=== PATIENT | male | born 1950 | race African-American/Black ===

== ENCOUNTER 2020-09-13 09:50 | Emergency (ER) | payer MEDICARE, MEDICAID ==
[~2020-09-13] VITALS: Ht 180.3 cm; Wt 73.0 kg
[2020-09-13 11:13] LABS: BASOPHILS % 0.5 % (0.0-2.0); EOSINOPHILS % 1.3 % (0.0-5.0); HEMATOCRIT. 38.4 % (42.0-52.0); HEMOGLOBIN. 12.5 g/dL (14.0-18.0); MEAN CORPUSCULAR HEMOGLOBIN 28.4 pg (28.0-32.0); MEAN CORPUSCULAR VOLUME 87.1 fL (80.0-94.0); MEAN PLATELET VOLUME 8.4 fl (7.4-10.4); MONOCYTES % 9.3 % (2.0-8.0); NEUTROPHILS % 68.9 % (40.0-76.0); PLATELET 229 x1000/uL (130-400); RED BLOOD CELL COUNT 4.41 mill/uL (4.7-6.1); RED CELL DISTRIBUTION WIDTH 16.8 % (11.6-14.6)
[2020-09-13 11:17] LABS: CHLORIDE 101 mEq/L (98-107)
[2020-09-13 11:22] LABS: ETHANOL BLOOD < 10 mg/dL
[2020-09-13] MEDS ORDERED: KETOROLAC 30MG/ML VIAL IV ONE (12:00)
[2020-09-13 12:48] LABS: CLARITY URINE CLEAR (CLEAR); COLOR URINE YELLOW (YELLOW); KETONES URINE NEGATIVE (NEGATIVE); LEUKOCYTE ESTERASE URINE NEGATIVE (NEGATIVE); NITRITE URINE NEGATIVE (NEGATIVE); OCCULT BLOOD URINE NEGATIVE (NEGATIVE); PH URINE 6.5 (4.5-8.0); PROTEIN URINE 2+ (NEGATIVE); SPECIFIC GRAVITY URINE 1.018 (1.005-1.030)
[2020-09-13 13:06] LABS: *AMPHETAMINES SCREEN URINE NEGATIVE (NEGATIVE); *BARBITURATES SCREEN URINE NEGATIVE (NEGATIVE); *BENZODIAZEPINES SCREEN URINE NEGATIVE (NEGATIVE); *COCAINE SCREEN URINE NEGATIVE (NEGATIVE); METHADONE URINE SCREEN NEGATIVE (NEGATIVE); OPIATES URINE SCREEN NEGATIVE (NEGATIVE)
[2020-09-13 13:07] LABS: CANNABINOID URINE SCREEN NEGATIVE (NEGATIVE); PHENCYCLIDINE URINE SCREEN NEGATIVE (NEGATIVE)
[2020-09-13 18:30] VITALS: BP 122/76
== END 2020-09-13 21:42 | disposition home or self-care (01) ==
LOC: ER 10:08
DX: F03.90 Unspecified dementia, unspecified severity, without behavioral disturbance, psychotic disturbance, mood disturbance, and anxiety (principal); J44.9 Chronic obstructive pulmonary disease, unspecified
CPT/HCPCS: 36415; 71045; 80053; 80305; 80320; 81003; 82140; 85025; 93005; 96374; 99285; J1885; G0480

== ENCOUNTER 2021-03-21 05:07 | Inpatient (IN) | payer BC, MEDICAID ==
[~2021-03-21] VITALS: Ht 154.3 cm; Wt 59.9 kg
[~2021-03-21 05:07] MED LIST: ALBU18HF2 IH; FLUT1DIS3 INH; MED4 MT; MEMA5TAB7 PO; MULT-379 MT; RISP1 PO
[2021-03-21 06:23] LABS: HEMATOCRIT. 36.9 % (42.0-52.0); HEMOGLOBIN. 11.7 g/dL (14.0-18.0); MEAN CORPUSCULAR HEMOGLOBIN 28.6 pg (28.0-32.0); MEAN CORPUSCULAR VOLUME 90.2 fL (80.0-94.0); MEAN PLATELET VOLUME 8.4 fl (7.4-10.4); PLATELET 279 x1000/uL (130-400); RED BLOOD CELL COUNT 4.09 mill/uL (4.7-6.1); RED CELL DISTRIBUTION WIDTH 15.8 % (11.6-14.6)
[2021-03-21 06:31] LABS: CHLORIDE 104 mEq/L (98-107)
[2021-03-21] MEDS ORDERED: METHYLPREDNISOLONE SOD SUCC 125 MG/2 ML VIAL IV STA (06:34)
[2021-03-21] MEDS ORDERED: IPRATROPIUM BROMIDE (0.02%) 0.5MG/2.5ML NEB HHN STA (06:34)
[2021-03-21] MEDS ORDERED: ALBUTEROL (0.083%) 2.5MG/3ML NEB HHN STA (06:34)
[2021-03-21 07:02] LABS: PLATELET ESTIMATE NORMAL
[2021-03-21] MEDS ORDERED: HALOPERIDOL LACTATE 5MG/ML VIAL IM ONE (08:15)
[2021-03-21] MEDS ORDERED: ONDANSETRON HCL 4MG/2ML INJ IV PRN (12:15)
[2021-03-21] MEDS ORDERED: ACETAMINOPHEN 325MG TABLET PO PRN (12:15)
[2021-03-21] MEDS: METHYLPREDNISOLONE SOD SUCC 40 MG/ML VIAL IV SCH ×2 (12:30→21:18)
[2021-03-21 16:00] VITALS: BP 136/76
[2021-03-21] MEDS: IPRATROPIUM/ALBUTEROL 0.5-3(2.5)MG/3ML NEB HHN SCH ×2 (16:00→21:55)
[2021-03-21 16:03] VITALS: BP 136/76
[2021-03-21] MEDS ORDERED: HALOPERIDOL LACTATE 5MG/ML VIAL IM NR (18:15)
[2021-03-21] MEDS ORDERED: HALOPERIDOL LACTATE 5MG/ML VIAL IM PRN (18:15)
[2021-03-21 20:00] VITALS: BP 119/71
[2021-03-21] MEDS: FAMOTIDINE 20MG TABLET PO SCH (21:18)
[2021-03-22 04:00] VITALS: BP 120/73
[2021-03-22] MEDS: IPRATROPIUM/ALBUTEROL 0.5-3(2.5)MG/3ML NEB HHN SCH ×4 (04:00→20:00)
[2021-03-22] MEDS: METHYLPREDNISOLONE SOD SUCC 40 MG/ML VIAL IV SCH ×3 (05:41→20:40)
[2021-03-22 08:20] VITALS: BP 123/76
[2021-03-22] MEDS: FAMOTIDINE 20MG TABLET PO SCH ×2 (08:50→20:40)
[2021-03-22 12:00] VITALS: BP 99/80
[2021-03-22] MEDS: RISPERIDONE 1MG TABLET PO SCH (12:07)
[2021-03-22 16:00] VITALS: BP 130/78
[2021-03-22 20:00] VITALS: BP 127/74
[2021-03-23] MEDS: IPRATROPIUM/ALBUTEROL 0.5-3(2.5)MG/3ML NEB HHN SCH ×4 (04:00→16:15)
[2021-03-23] MEDS: METHYLPREDNISOLONE SOD SUCC 40 MG/ML VIAL IV SCH ×2 (04:30→14:07)
[2021-03-23 08:00] VITALS: BP 147/95
[2021-03-23] MEDS: FAMOTIDINE 20MG TABLET PO SCH (08:12)
[2021-03-23] MEDS: RISPERIDONE 1MG TABLET PO SCH (08:12)
[2021-03-23] MEDS ORDERED: P20 MT (11:12)
[2021-03-23 12:00] VITALS: BP 114/63
[2021-03-23 13:55] VITALS: BP 114/63
== END 2021-03-23 16:35 | disposition home or self-care (01) | DRG 189 ==
LOC: ER 05:07 → 5WST 08:25 → EDBEDREQ 08:27 → EDBEDREQTM 08:27 → ENRESERV 11:38 → 5WST 18:00
PROVIDERS: ADMIT Internal Medicine; ATTEND Internal Medicine
DX: J96.01 Acute respiratory failure with hypoxia (principal); J44.1 Chronic obstructive pulmonary disease with (acute) exacerbation; I10 Essential (primary) hypertension; Z99.81 Dependence on supplemental oxygen; D64.9 Anemia, unspecified; F03.90 Unspecified dementia, unspecified severity, without behavioral disturbance, psychotic disturbance, mood disturbance, and anxiety; F20.9 Schizophrenia, unspecified; Z79.51 Long term (current) use of inhaled steroids; Z79.899 Other long term (current) drug therapy; Z78.1 Physical restraint status
CPT/HCPCS: 36415; 71045; 80053; 83880; 84484; 85025; 93005; 94640; 99285; C1893; J1630; J2920

== ENCOUNTER 2021-05-17 13:00 | Inpatient (IN) | payer BC, MEDICAID ==
[~2021-05-17] VITALS: Ht 170.2 cm; Wt 79.4 kg
[~2021-05-17 13:00] MED LIST changes: +FAMO20TA8 PO; +IPRA3AMP9 HHN; -MED4 MT; +P20 MT
[2021-05-17] MEDS ORDERED: IPRATROPIUM BROMIDE (0.02%) 0.5MG/2.5ML NEB HHN STA (13:06)
[2021-05-17] MEDS ORDERED: ALBUTEROL (0.083%) 2.5MG/3ML NEB HHN STA (13:06)
[2021-05-17] MEDS ORDERED: PREDNISONE 20MG TABLET PO STA (13:06)
[2021-05-17] MEDS ORDERED: LEVOFLOXACIN 750MG PREMIX 150 ML IV ONE (13:30)
[2021-05-17 14:03] LABS: BASOPHILS % 0.4 % (0.0-2.0); EOSINOPHILS % 0.3 % (0.0-5.0); HEMATOCRIT. 40.1 % (42.0-52.0); HEMOGLOBIN. 13.2 g/dL (14.0-18.0); LYMPHOCYTES % 20.1 % (20.0-50.0); MEAN CORPUSCULAR HEMOGLOBIN 29.5 pg (28.0-32.0); MEAN PLATELET VOLUME 8.5 fl (7.4-10.4); MONOCYTES % 9.4 % (2.0-8.0); NEUTROPHILS % 69.8 % (40.0-76.0); PLATELET 247 x1000/uL (130-400); RED BLOOD CELL COUNT 4.46 mill/uL (4.7-6.1); RED CELL DISTRIBUTION WIDTH 16.3 % (11.6-14.6)
[2021-05-17 14:07] LABS: CHLORIDE 107 mEq/L (98-107)
[2021-05-17 14:40] LABS: BG BASE EXCESS 9.1 mmol/L (-2.0-2.0); BG CARBOXYHEMOGLOBIN 0.8 % (0.5-1.5); BG DEOXYHEMOGLOBIN 5.8 % (0.0-5.0); BG FRACTION INSPIRED OXYGEN 28; BG HCO3 ACT 37.5 mmol/L (22.0-26.0); BG METHEMOGLOBIN 0.2 % (0.0-1.5); BG OXYGEN SATURATION 94.1 % (92.0-98.5); BG OXYHEMOGLOBIN 93.2 % (94.0-97.0); BG PCO2 70.1 mmHg (35.0-45.0); BG PH 7.346 (7.350-7.450); BG PO2 72.3 mmHg (75.0-100.0); BG SAMPLE SITE RIGHT RADIAL; BG TOTAL HEMOGLOBIN 13.7 g/dL (12.0-18.0); BG VENT MODE NASAL CANNULA
[2021-05-17] MEDS ORDERED: LORAZEPAM 2MG/ML CPJ IM PRN (14:45)
[2021-05-17] MEDS ORDERED: ALBUTEROL (0.083%) 2.5MG/3ML NEB HHN NR (15:15)
[2021-05-17] MEDS ORDERED: OLANZAPINE 10 MG/VIAL IM ONE (16:45)
[2021-05-17 17:45] LABS: *AMPHETAMINES SCREEN URINE NEGATIVE (NEGATIVE); *BARBITURATES SCREEN URINE NEGATIVE (NEGATIVE); *BENZODIAZEPINES SCREEN URINE NEGATIVE (NEGATIVE); *COCAINE SCREEN URINE NEGATIVE (NEGATIVE); CANNABINOID URINE SCREEN NEGATIVE (NEGATIVE); PHENCYCLIDINE URINE SCREEN NEGATIVE (NEGATIVE)
[2021-05-17 17:46] LABS: METHADONE URINE SCREEN NEGATIVE (NEGATIVE); OPIATES URINE SCREEN NEGATIVE (NEGATIVE)
[2021-05-17] MEDS ORDERED: HYDROCODONE/ACETAMINOPHEN 5/325MG TABLET PO PRN (18:30)
[2021-05-17] MEDS ORDERED: CLONIDINE 0.1MG TABLET PO PRN (18:30)
[2021-05-17] MEDS ORDERED: DOCUSATE SODIUM 100MG CAPSULE PO PRN (18:30)
[2021-05-17] MEDS ORDERED: ONDANSETRON HCL 4MG/2ML INJ IV PRN (18:30)
[2021-05-17] MEDS ORDERED: ACETAMINOPHEN 325MG TABLET PO PRN ×2 (18:30)
[2021-05-17] MEDS: METHYLPREDNISOLONE SOD SUCC 40 MG/ML VIAL IV SCH (18:35)
[2021-05-18] VITALS (7 sets, daily range): BP systolic 120–144; BP diastolic 59–101
[2021-05-18] MEDS: METHYLPREDNISOLONE SOD SUCC 40 MG/ML VIAL IV SCH ×3 (03:49→18:40)
[2021-05-18] MEDS: LORAZEPAM 0.5MG TABLET PO PRN ×4 (06:19→23:24)
[2021-05-18] MEDS ORDERED: NALOXONE HCL 0.4MG/ML VIAL IV PRN (15:15)
[2021-05-18] MEDS ORDERED: IPRA3AMP9 HHN (17:17)
[2021-05-18] MEDS ORDERED: P20 MT (17:17)
[2021-05-18] MEDS ORDERED: FAMO20TA8 PO (17:17)
[2021-05-18] MEDS ORDERED: ALBU18HF2 IH (17:17)
[2021-05-18] MEDS ORDERED: FLUT1DIS3 INH (17:17)
[2021-05-18 20:42] LABS: HEMATOCRIT. 37.7 % (42.0-52.0); HEMOGLOBIN. 12.7 g/dL (14.0-18.0); MEAN CORPUSCULAR HEMOGLOBIN 30.2 pg (28.0-32.0); MEAN CORPUSCULAR VOLUME 89.9 fL (80.0-94.0); MEAN PLATELET VOLUME 8.8 fl (7.4-10.4); PLATELET 270 x1000/uL (130-400); RED CELL DISTRIBUTION WIDTH 16.2 % (11.6-14.6)
[2021-05-18 20:50] LABS: CHLORIDE 105 mEq/L (98-107)
[2021-05-18 22:37] LABS: PLATELET ESTIMATE NORMAL
[2021-05-19] VITALS: BP 124/81
[2021-05-19] MEDS: METHYLPREDNISOLONE SOD SUCC 40 MG/ML VIAL IV SCH ×3 (02:07→18:19)
[2021-05-19 04:00] VITALS: BP 126/68
[2021-05-19] MEDS: LORAZEPAM 0.5MG TABLET PO PRN (14:41)
[2021-05-19 15:54] LABS: BG BASE EXCESS 5.7 mmol/L (-2.0-2.0); BG CARBOXYHEMOGLOBIN 0.4 % (0.5-1.5); BG DEOXYHEMOGLOBIN 3.8 % (0.0-5.0); BG FRACTION INSPIRED OXYGEN 28; BG HCO3 ACT 33.1 mmol/L (22.0-26.0); BG METHEMOGLOBIN 0.3 % (0.0-1.5); BG OXYGEN SATURATION 96.2 % (92.0-98.5); BG OXYHEMOGLOBIN 95.5 % (94.0-97.0); BG PCO2 61.2 mmHg (35.0-45.0); BG PH 7.351 (7.350-7.450); BG PO2 88.3 mmHg (75.0-100.0); BG SAMPLE SITE LEFT RADIAL; BG TOTAL HEMOGLOBIN 13.4 g/dL (12.0-18.0); BG VENT MODE ROOM AIR
[2021-05-19 16:00] VITALS: BP 106/66
[2021-05-19] MEDS: LORAZEPAM 2MG/ML CPJ IV PRN (20:44)
[2021-05-19 21:45] VITALS: BP 115/61
[2021-05-20] VITALS: BP 118/66
[2021-05-20] MEDS: METHYLPREDNISOLONE SOD SUCC 40 MG/ML VIAL IV SCH ×2 (02:06→10:30)
[2021-05-20] MEDS: IPRATROPIUM/ALBUTEROL 0.5-3(2.5)MG/3ML NEB HHN PRN (02:12)
[2021-05-20] MEDS: LORAZEPAM 2MG/ML CPJ IV PRN ×2 (03:31→15:15)
[2021-05-20 04:00] VITALS: BP 124/75
[2021-05-20 08:00] VITALS: BP 113/77
[2021-05-20] MEDS: BUDESONIDE 0.5MG/2ML NEB HHN SCH ×2 (09:52→20:46)
[2021-05-20 16:00] VITALS: BP 107/72
[2021-05-20 16:27] VITALS: BP 113/77
[2021-05-20 20:00] VITALS: BP 122/83
[2021-05-21] VITALS: BP 122/83
[2021-05-21] MEDS: METHYLPREDNISOLONE SOD SUCC 40 MG/ML VIAL IV SCH ×2 (02:15→12:05)
[2021-05-21 04:00] VITALS: BP 96/62
[2021-05-21] MEDS: LORAZEPAM 2MG/ML CPJ IV PRN ×2 (05:10→16:31)
[2021-05-21] MEDS: BUDESONIDE 0.5MG/2ML NEB HHN SCH (08:04)
[2021-05-21] MEDS: IPRATROPIUM/ALBUTEROL 0.5-3(2.5)MG/3ML NEB HHN PRN (08:04)
[2021-05-21 12:00] VITALS: BP 104/61
[2021-05-21 16:00] VITALS: BP 125/65
[2021-05-22] MEDS ORDERED: METHYLPREDNISOLONE SOD SUCC 40 MG/ML VIAL IV SCH (09:00)
== END 2021-05-21 19:17 | disposition home or self-care (01) | DRG 189 ==
LOC: ER 13:00 → 8WST 16:47 → ENRESERV 05-18 04:11 → 6EST 05-20 02:30
PROVIDERS: ADMIT Internal Medicine; ATTEND Internal Medicine
PROC: 5A09357 Assistance with Respiratory Ventilation, Less than 24 Consecutive Hours, Continuous Positive Airway Pressure (ICD-10-PCS; principal; 2021-05-17)
DX: J96.20 Acute and chronic respiratory failure, unspecified whether with hypoxia or hypercapnia (principal); J44.1 Chronic obstructive pulmonary disease with (acute) exacerbation; E44.1 Mild protein-calorie malnutrition; D64.9 Anemia, unspecified; F41.9 Anxiety disorder, unspecified; F03.90 Unspecified dementia, unspecified severity, without behavioral disturbance, psychotic disturbance, mood disturbance, and anxiety; I10 Essential (primary) hypertension; F20.9 Schizophrenia, unspecified; Z78.1 Physical restraint status; Z82.49 Family history of ischemic heart disease and other diseases of the circulatory system; Z99.81 Dependence on supplemental oxygen; Z87.891 Personal history of nicotine dependence; Z79.51 Long term (current) use of inhaled steroids; Z68.27 Body mass index [BMI] 27.0-27.9, adult; Z20.822 Contact with and (suspected) exposure to COVID-19
CPT/HCPCS: 36415; 36600; 71045; 73030; 80048; 80053; 80305; 82375; 82805; 83880; 84484; 85025; 87426; 93005; 94640; 94660; 99285; J1956; J2060; J2920; J3490; J7512; J7626

== ENCOUNTER 2021-05-28 19:04 | Inpatient (IN) | payer BC, MEDICAID ==
[~2021-05-28] VITALS: Ht 172.7 cm; Wt 54.4 kg
[2021-05-28] MEDS ORDERED: ASPIRIN 81MG TABLET PO ONE (20:15)
[2021-05-28 20:58] LABS: BASOPHILS % 0.4 % (0.0-2.0); EOSINOPHILS % 0.4 % (0.0-5.0); HEMATOCRIT. 38.5 % (42.0-52.0); HEMOGLOBIN. 12.6 g/dL (14.0-18.0); LYMPHOCYTES % 15.5 % (20.0-50.0); MEAN CORPUSCULAR HEMOGLOBIN 29.6 pg (28.0-32.0); MEAN CORPUSCULAR VOLUME 90.1 fL (80.0-94.0); MEAN PLATELET VOLUME 8.1 fl (7.4-10.4); MONOCYTES % 7.7 % (2.0-8.0); PLATELET 250 x1000/uL (130-400); RED BLOOD CELL COUNT 4.28 mill/uL (4.7-6.1); RED CELL DISTRIBUTION WIDTH 16.7 % (11.6-14.6)
[2021-05-28 21:07] LABS: CHLORIDE 109 mEq/L (98-107)
[2021-05-28] MEDS ORDERED: ALBUTEROL (0.083%) 2.5MG/3ML NEB HHN STA (22:15)
[2021-05-28] MEDS ORDERED: METHYLPREDNISOLONE SOD SUCC 125 MG/2 ML VIAL IV STA (22:15)
[2021-05-29] MEDS ORDERED: IBUPROFEN 600MG TABLET PO ONE (00:15)
[2021-05-29 01:10] VITALS: BP 115/52
[2021-05-29] MEDS: ALBUTEROL (0.083%) 2.5MG/3ML NEB HHN SCH ×2 (02:40→21:14)
[2021-05-29 04:00] VITALS: BP 109/60
[2021-05-29] MEDS ORDERED: METHYLPREDNISOLONE SOD SUCC 40 MG/ML VIAL IV SCH ×2 (06:15→09:00)
[2021-05-29] MEDS ORDERED: ACETAMINOPHEN 325MG TABLET PO PRN (06:15)
[2021-05-29] MEDS ORDERED: NON FORMULARY PATIENT HOME MED XX SCH (06:15)
[2021-05-29] MEDS ORDERED: IPRATROPIUM/ALBUTEROL 0.5-3(2.5)MG/3ML NEB HHN PRN (06:15)
[2021-05-29] MEDS ORDERED: HYDROCODONE/ACETAMINOPHEN 5/325MG TABLET PO PRN (06:15)
[2021-05-29] MEDS ORDERED: NALOXONE HCL 0.4MG/ML VIAL IV PRN (07:30)
[2021-05-29 08:07] VITALS: BP 97/55
[2021-05-29] MEDS: MEMANTINE HCL 5MG TABLET PO SCH ×2 (08:15→08:25)
[2021-05-29] MEDS: RISPERIDONE 1MG TABLET PO SCH ×3 (08:15→21:14)
[2021-05-29] MEDS: ENOXAPARIN 40MG/0.4ML SYR SUBCUT SCH ×2 (08:16→08:25)
[2021-05-29] MEDS ORDERED: LEVOFLOXACIN 500MG TABLET PO SCH (11:00)
[2021-05-29 12:00] VITALS: BP 108/81
[2021-05-29] MEDS: IPRATROPIUM/ALBUTEROL 0.5-3(2.5)MG/3ML NEB HHN SCH (15:41)
[2021-05-29 16:31] VITALS: BP 127/82
[2021-05-29] MEDS: PREDNISONE 20MG TABLET PO SCH (17:17)
[2021-05-29] MEDS: BUDESONIDE 0.5MG/2ML NEB HHN SCH (21:15)
[2021-05-29] MEDS: FAMOTIDINE 20MG TABLET PO SCH (21:15)
[2021-05-30] MEDS: ENOXAPARIN 40MG/0.4ML SYR SUBCUT SCH ×2 (07:58→08:01)
[2021-05-30] MEDS: PREDNISONE 20MG TABLET PO SCH ×2 (07:59→17:00)
[2021-05-30] MEDS: MEMANTINE HCL 5MG TABLET PO SCH (07:59)
[2021-05-30] MEDS: RISPERIDONE 1MG TABLET PO SCH ×2 (07:59→21:32)
[2021-05-30 11:06] VITALS: BP 114/72
[2021-05-30 15:36] VITALS: BP 134/90
[2021-05-30] MEDS ORDERED: P20 MT (17:00)
[2021-05-30] MEDS ORDERED: FLUT1DIS3 INH (17:00)
[2021-05-30] MEDS ORDERED: ALBU18HF2 IH (17:00)
[2021-05-30] MEDS: FAMOTIDINE 20MG TABLET PO SCH (21:32)
[2021-05-30] MEDS: BUDESONIDE 0.5MG/2ML NEB HHN SCH (21:40)
[2021-05-30] MEDS: ALBUTEROL (0.083%) 2.5MG/3ML NEB HHN SCH (21:40)
[2021-05-31] VITALS: BP 99/64
[2021-05-31] MEDS: ALBUTEROL (0.083%) 2.5MG/3ML NEB HHN SCH (02:15)
[2021-05-31 04:00] VITALS: BP 120/60
[2021-05-31] MEDS: RISPERIDONE 1MG TABLET PO SCH (09:00)
[2021-05-31] MEDS: ENOXAPARIN 40MG/0.4ML SYR SUBCUT SCH (09:00)
[2021-05-31] MEDS: MEMANTINE HCL 5MG TABLET PO SCH (09:00)
[2021-05-31] MEDS: PREDNISONE 20MG TABLET PO SCH ×2 (09:00→17:00)
[2021-05-31] MEDS: IPRATROPIUM/ALBUTEROL 0.5-3(2.5)MG/3ML NEB HHN SCH ×3 (09:46→17:20)
[2021-05-31] MEDS: BUDESONIDE 0.5MG/2ML NEB HHN SCH (12:10)
[2021-05-31 16:00] VITALS: BP 94/60
== END 2021-05-31 19:00 | disposition home or self-care (01) | DRG 189 ==
LOC: ER 19:04 → 6WST 23:25 → ENRESERV 23:33
PROVIDERS: ADMIT Internal Medicine; ATTEND Internal Medicine
DX: J96.20 Acute and chronic respiratory failure, unspecified whether with hypoxia or hypercapnia (principal); J44.1 Chronic obstructive pulmonary disease with (acute) exacerbation; E44.1 Mild protein-calorie malnutrition; Z68.1 Body mass index [BMI] 19.9 or less, adult; F03.90 Unspecified dementia, unspecified severity, without behavioral disturbance, psychotic disturbance, mood disturbance, and anxiety; F20.9 Schizophrenia, unspecified; I10 Essential (primary) hypertension; F41.9 Anxiety disorder, unspecified; D64.9 Anemia, unspecified; Z79.899 Other long term (current) drug therapy; Z82.49 Family history of ischemic heart disease and other diseases of the circulatory system; Z87.891 Personal history of nicotine dependence; Z99.81 Dependence on supplemental oxygen
CPT/HCPCS: 36415; 71045; 80053; 83880; 84484; 85025; 93005; 94640; 99285; C1893; J1650; J2920; J2930; J7512; J7626

== ENCOUNTER 2021-07-29 18:35 | Inpatient (IN) | payer BC, MEDICAID ==
[~2021-07-29] VITALS: Ht 172.7 cm; Wt 51.9 kg
[2021-07-29] MEDS ORDERED: ALBUTEROL (0.083%) 2.5MG/3ML NEB HHN STA (19:13)
[2021-07-29] MEDS ORDERED: METHYLPREDNISOLONE SOD SUCC 125 MG/2 ML VIAL IV STA (19:13)
[2021-07-29] MEDS ORDERED: ASPIRIN 81MG TABLET PO ONE (19:15)
[2021-07-29 21:43] LABS: BASOPHILS % 0.8 % (0.0-2.0); EOSINOPHILS % 0.5 % (0.0-5.0); HEMATOCRIT. 33.5 % (42.0-52.0); LYMPHOCYTES % 15.2 % (20.0-50.0); MEAN CORPUSCULAR HEMOGLOBIN 29.7 pg (28.0-32.0); MEAN PLATELET VOLUME 8.8 fl (7.4-10.4); NEUTROPHILS % 73.5 % (40.0-76.0); PLATELET 59 x1000/uL (130-400); RED BLOOD CELL COUNT 3.72 mill/uL (4.7-6.1); RED CELL DISTRIBUTION WIDTH 17.1 % (11.6-14.6)
[2021-07-29 21:53] LABS: CHLORIDE 103 mEq/L (98-107)
[2021-07-30] MEDS ORDERED: ACETAMINOPHEN 325MG TABLET PO PRN (08:30)
[2021-07-30] MEDS ORDERED: ONDANSETRON HCL 4MG/2ML INJ IV PRN (08:30)
[2021-07-30] MEDS: METHYLPREDNISOLONE SOD SUCC 40 MG/ML VIAL IV SCH ×2 (08:51→18:37)
[2021-07-30 13:56] LABS: BG BASE EXCESS 8.9 mmol/L (-2.0-2.0); BG CARBOXYHEMOGLOBIN 0.3 % (0.5-1.5); BG DEOXYHEMOGLOBIN 1.1 % (0.0-5.0); BG FRACTION INSPIRED OXYGEN 50; BG HCO3 ACT 36.1 mmol/L (22.0-26.0); BG METHEMOGLOBIN 0.1 % (0.0-1.5); BG OXYGEN SATURATION 98.9 % (92.0-98.5); BG OXYHEMOGLOBIN 98.5 % (94.0-97.0); BG PCO2 64.5 mmHg (35.0-45.0); BG PH 7.366 (7.350-7.450); BG PO2 183.5 mmHg (75.0-100.0); BG SAMPLE SITE RIGHT RADIAL; BG VENT MODE MASK - BIPAP
[2021-07-30 16:00] VITALS: BP 116/74
[2021-07-30 16:47] VITALS: BP 124/76
[2021-07-30] MEDS ORDERED: IPRATROPIUM/ALBUTEROL 0.5-3(2.5)MG/3ML NEB HHN PRN (19:15)
[2021-07-30 20:00] VITALS: BP 136/78
[2021-07-30] MEDS: RISPERIDONE 0.5MG TABLET PO SCH (20:24)
[2021-07-30] MEDS: FAMOTIDINE 20MG TABLET PO SCH (20:24)
[2021-07-30] MEDS: IPRATROPIUM/ALBUTEROL 0.5-3(2.5)MG/3ML NEB HHN SCH (21:50)
[2021-07-31] VITALS: BP 127/83
[2021-07-31] MEDS: METHYLPREDNISOLONE SOD SUCC 40 MG/ML VIAL IV SCH ×3 (01:17→16:30)
[2021-07-31 04:00] VITALS: BP 119/83
[2021-07-31 08:00] VITALS: BP 104/67
[2021-07-31] MEDS: RISPERIDONE 0.5MG TABLET PO SCH ×2 (09:59→17:55)
[2021-07-31 12:00] VITALS: BP 132/80
[2021-07-31 13:12] LABS: *AMPHETAMINES SCREEN URINE NEGATIVE (NEGATIVE); *BARBITURATES SCREEN URINE NEGATIVE (NEGATIVE); *BENZODIAZEPINES SCREEN URINE NEGATIVE (NEGATIVE); *COCAINE SCREEN URINE NEGATIVE (NEGATIVE); METHADONE URINE SCREEN NEGATIVE (NEGATIVE); OPIATES URINE SCREEN NEGATIVE (NEGATIVE)
[2021-07-31 13:13] LABS: CANNABINOID URINE SCREEN NEGATIVE (NEGATIVE); PHENCYCLIDINE URINE SCREEN NEGATIVE (NEGATIVE)
[2021-07-31] MEDS: IPRATROPIUM/ALBUTEROL 0.5-3(2.5)MG/3ML NEB HHN SCH ×2 (13:32→21:10)
[2021-07-31 14:49] VITALS: BP 132/80
[2021-07-31 20:00] VITALS: BP 102/58
[2021-07-31] MEDS: FAMOTIDINE 20MG TABLET PO SCH (20:39)
[2021-07-31] MEDS: LORAZEPAM 2MG/ML CPJ IV PRN (22:31)
[2021-08-01] VITALS (7 sets, daily range): BP systolic 106–131; BP diastolic 56–82
[2021-08-01] MEDS: METHYLPREDNISOLONE SOD SUCC 40 MG/ML VIAL IV SCH ×3 (00:27→20:29)
[2021-08-01] MEDS: IPRATROPIUM/ALBUTEROL 0.5-3(2.5)MG/3ML NEB HHN SCH ×6 (01:00→21:30)
[2021-08-01] MEDS: RISPERIDONE 0.5MG TABLET PO SCH ×2 (09:13→17:22)
[2021-08-01] MEDS: LORAZEPAM 2MG/ML CPJ IV PRN (20:30)
[2021-08-01] MEDS: FAMOTIDINE 20MG TABLET PO SCH (20:30)
[2021-08-02] VITALS: BP 110/70
[2021-08-02] MEDS: IPRATROPIUM/ALBUTEROL 0.5-3(2.5)MG/3ML NEB HHN SCH ×2 (00:40→04:25)
[2021-08-02 04:00] VITALS: BP 102/66
[2021-08-02 08:00] VITALS: BP 114/68
[2021-08-02] MEDS: RISPERIDONE 0.5MG TABLET PO SCH ×2 (09:00→09:54)
[2021-08-02] MEDS: METHYLPREDNISOLONE SOD SUCC 40 MG/ML VIAL IV SCH (09:54)
[2021-08-02] MEDS: LORAZEPAM 2MG/ML CPJ IV PRN (11:01)
[2021-08-02 12:00] VITALS: BP 106/62
[2021-08-02 13:23] VITALS: BP 106/62
== END 2021-08-02 15:05 | disposition home or self-care (01) | DRG 189 ==
LOC: ER 18:35 → MICUSO 23:54 → 7EST 07-30 15:21
PROVIDERS: ADMIT Internal Medicine; ATTEND Internal Medicine
PROC: 5A09357 Assistance with Respiratory Ventilation, Less than 24 Consecutive Hours, Continuous Positive Airway Pressure (ICD-10-PCS; principal; 2021-07-30)
DX: J96.22 Acute and chronic respiratory failure with hypercapnia (principal); J44.1 Chronic obstructive pulmonary disease with (acute) exacerbation; E44.1 Mild protein-calorie malnutrition; Z68.1 Body mass index [BMI] 19.9 or less, adult; D64.9 Anemia, unspecified; F03.90 Unspecified dementia, unspecified severity, without behavioral disturbance, psychotic disturbance, mood disturbance, and anxiety; F20.9 Schizophrenia, unspecified; F41.9 Anxiety disorder, unspecified; I10 Essential (primary) hypertension; Z82.49 Family history of ischemic heart disease and other diseases of the circulatory system; Z87.891 Personal history of nicotine dependence; Z99.81 Dependence on supplemental oxygen; Z79.899 Other long term (current) drug therapy; Z83.6 Family history of other diseases of the respiratory system
CPT/HCPCS: 36415; 36600; 71045; 80053; 80305; 82375; 82805; 83880; 84484; 85025; 93005; 94640; 94660; 99291; J2060; J2405; J2920; J2930